=== PATIENT | female | born 1985 | race Caucasian/White ===

== ENCOUNTER 2019-01-13 16:51 | Emergency (ER) | payer MEDICAID ==
[2019-01-13] MEDS: HYDROCODONE/APAP (5/325) TAB PO (18:04)
== END 2019-01-13 18:10 | disposition home or self-care (01) ==
LOC: FTE 16:51
DX: L76.81 Other intraoperative complications of skin and subcutaneous tissue (principal)
CPT/HCPCS: 99283; Z7502